=== PATIENT | male | born 1965 | race Caucasian/White ===

== ENCOUNTER 2018-04-03 18:48 | Emergency (ER) | payer OTHER ==
[~2018-04-03] VITALS: Ht 172.7 cm; Wt 88.5 kg
[~2018-04-03 18:48] MED LIST: ALDACTONE50 MG PO; FOLIC ACID 1 MG PO; FUROSEMIDE20 MG PO; MULTIVITAMIN1 TAB PO; Orajel TOP; PRILOSEC40 MG PO; Tears Natural OPH; VITAMIN B1100 MG PO
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
[2018-04-03] MEDS ORDERED: PANTOPRAZOLE SO40 M1 PO (19:33)
[2018-04-03] MEDS ORDERED: ALDACTONE100 M1 PO (19:33)
[2018-04-03] MEDS ORDERED: FUROSEMIDE20 M1 PO (19:33)
[2018-04-03] MEDS ORDERED: FOLIC ACID1 M1 PO (19:34)
[2018-04-03] MEDS ORDERED: LIDOCAINE1 EACH TOP (19:34)
[2018-04-03] MEDS ORDERED: B-1100 MG PO (19:34)
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
--- NOTE | 2018-04-03 21:04 | CT SCAN REPORT ---
EXAMINATION: CT HEAD WITHOUT CONTRAST CT CERVICAL SPINE WITHOUT CONTRAST CLINICAL INFORMATION: Fall. Intoxicated. COMPARISON: CT head 12/24/2017 TECHNIQUE: Imaging was performed from the skull base to vertex without intravenous administration of contrast. In addition, helical noncontrast CT imaging was acquired through the cervical spine and source images were reviewed along with axial reconstructions and sagittal and coronal MPRs. 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 No evidence for an acute infarct. No intracranial mass, hemorrhage, or midline shift is visualized. The ventricles and sulci are age-appropriate. No extra-axial collections are identified. The paranasal sinuses and mastoid air cells are well aerated. CERVICAL SPINE: There is no evidence of acute cervical spine fracture. Vertebral bodies remain normal in height. Cervical vertebrae have normal alignment. There is multilevel degenerative spondylosis of the cervical spine with disc height narrowing and endplate spurs and facet joint arthrosis No pre- or paravertebral soft tissue abnormality is identified. There are vascular calcification the soft tissues of the neck at the carotid artery bifurcation bilaterally. Limited assessment of the lung apices is unremarkable. IMPRESSION: 1. No acute intracranial pathology. 2. No CT evidence of acute cervical spine fracture or traumatic subluxation
[2018-04-03 21:18] LABS: ABSOLUTE BASOPHIL COUNT 0 /CUMM (0.0-0.2); ABSOLUTE EOSINOPHIL COUNT 0 /CUMM (0.0-0.7); ABSOLUTE MONOCYTE COUNT 0.5 /CUMM (0.10-0.60); BASOPHIL % 1.7 % (0.0-2.0); EOSINOPHIL % 0.3 % (0-5); GRANULOCYTE % 39.5 % (42.2-75.2); HEMATOCRIT 29.9 % (42-52); MEAN CORPUSCULAR HGB 33.4 PG (27.0-31.0); MEAN CORPUSCULAR HGB CONC 33.8 G/DL (33.0-37.0); MEAN CORPUSCULAR VOLUME 98.8 FL (80.0-94.0); MEAN PLATELET VOLUME 8.7 FL (7.4-10.4); RBC DISTRIBUTION WIDTH 21.1 % (11.5-14.5); RED BLOOD CELL CT 3.02 /CUMM (4.70-6.10); WHITE BLOOD CELL COUNT 2.6 /CUMM (4.8-10.8)
[2018-04-03 21:59] LABS: PLATELET COUNT 42 /CUMM (130-400)
--- NOTE | 2018-04-03 23:37 | CT SCAN REPORT ---
EXAMINATION: CT ABDOMEN AND PELVIS WITH CONTRAST CLINICAL INFORMATION: Dx: R/O BLEEDING, HEMATOMA, TRAUMA Signs Symptoms: ABNORMAL FLUID BEHIND LIVER, S/P FALL TODAY COMPARISON: CT abdomen pelvis 11/30/2015. MR abdomen 12/02/2015 TECHNIQUE: Multidetector volumetric imaging was performed of the abdomen and pelvis following IV administration of 95 mL of Optiray 320 intravenous contrast. Sagittal and coronal reformatted images were obtained on the technologist's workstation. DLP: 522.49 mGy-cm FINDINGS: LUNG BASES: The visualized lung bases are unremarkable. LIVER, GALLBLADDER, AND BILIARY TREE: At the posterior margin of the right lobe of liver again seen is a rounded lesion measuring 3.5 cm transverse. This has density measurement of 30 Hounsfield units. This lesion was also present on the CAT scan of 11/30/2015 measuring 3.3 cm in transverse dimension. The liver margin is slightly lobular in contour consistent with history of cirrhosis. There is no intrahepatic mass. There is normal enhancement of the splenic vein and portal veins and IVC. Small gallstones layering dependently at the neck of the gallbladder. No bile duct dilatation. PANCREAS: Unremarkable. SPLEEN: Unremarkable. ADRENAL GLANDS: Unremarkable. KIDNEYS AND URETERS: The kidneys are normal in size, shape, and attenuation. No hydronephrosis, hydroureter, or calculi seen. No perinephric stranding. BLADDER: Unremarkable. GASTROINTESTINAL TRACT: The small and large bowel are unremarkable. The appendix is not identified. MESENTERY: There is a small volume of abdominal ascites. The volume of the ascites has diminished since exam of 11/30/2015. There is no hematoma in the mesentery. VASCULAR/ABDOMINAL WALL: There are enhancing varices from a recannulated umbilical vein at the anterior abdominal wall. This includes enhancing veins in the right rectus muscle of the abdominal wall near the umbilicus. There is normal enhancement of the portal vein and splenic vein. Normal enhancement of the IVC. The abdominal aorta and major branch vessels are normally enhanced. There are small vascular wall calcifications of the distal aorta and common iliac arteries. There is no hematoma of the abdominal wall. LYMPH NODES: Normal. PELVIC VISCERA: Unremarkable. OSSEOUS STRUCTURES: Compression deformity of T9, T11, T12 and L1 are chronic and remains unchanged since prior CAT scan 11/30/2015. No fracture. IMPRESSION: 1. Cirrhosis of liver. Portal hypertension with varices at the anterior abdominal wall. 2. Stable exophytic mass at the posterior right lobe of liver unchanged since 2015 3. Small volume of abdominal ascites. The volume of the ascites has diminished since CAT scan 11/30/2015. 4. Cholelithiasis. 5. No hematoma of the abdominal wall. No acute osseous abnormality.
[2018-04-04 06:36] VITALS: BP 104/57
== END 2018-04-04 06:42 ==
LOC: ERH 18:48
PROVIDERS: Physician Assistant
DX: S32.010A Wedge compression fracture of first lumbar vertebra, initial encounter for closed fracture (principal); S22.080A Wedge compression fracture of T11-T12 vertebra, initial encounter for closed fracture; F10.129 Alcohol abuse with intoxication, unspecified; R07.81 Pleurodynia; W19.XXXA Unspecified fall, initial encounter; Y93.01 Activity, walking, marching and hiking
CPT/HCPCS: 74177; 80307; 81001; G0480